=== PATIENT | female | born 1975 | race Caucasian/White ===

== ENCOUNTER 2021-05-14 22:44 | Emergency (ER) | payer MEDICAID ==
[~2021-05-14] VITALS: Ht 160 cm; Wt 70.0 kg
[2021-05-14 22:58] VITALS: BP 109/82
[2021-05-14 23:37] LABS: CLARITY URINE CLEAR (CLEAR); COLOR URINE DARK YELLOW (YELLOW); KETONES URINE TRACE (NEGATIVE); LEUKOCYTE ESTERASE URINE 1+ (NEGATIVE); NITRITE URINE NEGATIVE (NEGATIVE); OCCULT BLOOD URINE 3+ (NEGATIVE); PH URINE 6.5 (4.5-8.0); PROTEIN URINE TRACE (NEGATIVE); SPECIFIC GRAVITY URINE 1.025 (1.005-1.030)
[2021-05-14] MEDS ORDERED: ACETAMINOPHEN 325MG TABLET PO PRN (23:45)
[2021-05-15 03:24] LABS: BASOPHILS % 1.2 % (0.0-2.0); EOSINOPHILS % 4.9 % (0.0-5.0); HEMATOCRIT. 36.5 % (36.0-48.0); HEMOGLOBIN. 12.1 g/dL (12.0-16.0); LYMPHOCYTES % 39.5 % (20.0-50.0); MEAN CORPUSCULAR VOLUME 87.4 fL (81.0-99.0); MEAN PLATELET VOLUME 8.1 fl (7.4-10.4); MONOCYTES % 9.2 % (2.0-8.0); NEUTROPHILS % 45.2 % (40.0-76.0); PLATELET 204 x1000/uL (130-400); RED BLOOD CELL COUNT 4.17 mill/uL (4.2-5.4); RED CELL DISTRIBUTION WIDTH 13.8 % (11.6-14.6)
[2021-05-15 03:31] LABS: CHLORIDE 114 mEq/L (98-107)
[2021-05-15 03:34] LABS: HCG SCREEN NEGATIVE
[2021-05-15 03:36] LABS: PARTIAL THROMBOPLASTIN TIME 28.2 sec (23.4-31.0); PROTHROMBIN TIME 10.5 sec (9.6-11.0)
[2021-05-15] MEDS ORDERED: CEPH250C2 MT (03:58)
[2021-05-15] MEDS ORDERED: POTASSIUM CHLORIDE 20MEQ TABLET SR PO ONE (04:00)
== END 2021-05-15 06:24 | disposition home or self-care (01) ==
LOC: ER 22:44
DX: N39.0 Urinary tract infection, site not specified (principal); D25.9 Leiomyoma of uterus, unspecified
CPT/HCPCS: 36415; 76830; 76856; 80053; 81003; 81025; 84703; 85025; 86850; 86900; 93005; 99285

== ENCOUNTER 2021-11-12 23:02 | Emergency (ER) | payer MEDICAID ==
[~2021-11-12] VITALS: Ht 160 cm; Wt 68.0 kg
[~2021-11-12 23:02] MED LIST: CEPH250C2 MT
[2021-11-13] MEDS ORDERED: LORAZEPAM 0.5MG TABLET PO ONE (01:15)
[2021-11-13] MEDS ORDERED: KETOROLAC 60MG/2ML VIAL IM ONE (01:15)
[2021-11-13 01:24] LABS: CLARITY URINE CLOUDY (CLEAR); COLOR URINE DARK YELLOW (YELLOW); KETONES URINE TRACE (NEGATIVE); LEUKOCYTE ESTERASE URINE 1+ (NEGATIVE); NITRITE URINE POSITIVE (NEGATIVE); OCCULT BLOOD URINE NEGATIVE (NEGATIVE); PH URINE 6.5 (4.5-8.0); PROTEIN URINE NEGATIVE (NEGATIVE); SPECIFIC GRAVITY URINE 1.021 (1.005-1.030)
[2021-11-13] MEDS ORDERED: CEPH500C2 MT (01:59)
[2021-11-13] MEDS ORDERED: METH-653 MT (01:59)
[2021-11-13] MEDS ORDERED: HYDR-4001 MT (02:14)
[2021-11-13 04:29] VITALS: BP 121/66
== END 2021-11-13 04:30 | disposition home or self-care (01) ==
LOC: ER 23:02
DX: M54.50 Low back pain, unspecified (principal); N39.0 Urinary tract infection, site not specified; Z98.890 Other specified postprocedural states
CPT/HCPCS: 81003; 81025; 96372; 99283; J1885